=== PATIENT | male | born 1975 | race Hispanic/Latino ===

== ENCOUNTER 2024-03-26 15:33 | Emergency (ER) | payer SELFPAY ==
[2024-03-26 15:48] VITALS: BP 102/62; PULSE 110; RESP 16; TEMP 36.7; O2SAT 99
--- NOTE | 2024-03-26 15:51 | ED.EAR ---
HPI - Ear Problem General Chief complaint: Ear Stated complaint: left ear hurts Time Seen by Provider: 03/26/24 15:52 Source: patient Mode of arrival: ambulatory Limitations: no limitations History of Present Illness HPI Narrative: 48 yo M presents with c/o decreased hearing and itching to L ear. Pt has had off and on problems with L ear for 2 to 3 months. Has been seen by her PCP twice. Was given an oral abx and then an antibiotic drop. Afebrile. No pain to L ear at this time. all systems reviewed and negative except as noted above. Related Data Home Medications Medication Instructions Recorded Confirmed atorvastatin 10 mg tablet 10 mg PO QHS 03/26/24 03/26/24 hydrochlorothiazide 25 mg tablet 25 mg PO QAM 03/26/24 03/26/24 lisinopril 40 mg tablet 40 mg PO QAM 03/26/24 03/26/24 telmisartan 80 mg tablet 80 mg PO QAM 03/26/24 03/26/24 Allergies Allergy/AdvReac Type Severity Reaction Status Date / Time Penicillins Allergy Mild Unknown Verified 03/26/24 16:03 Review of Systems Review of Systems: CONSTITUTIONAL: Denies fever, chills, or sweats. EYES: Denies visual changes, redness, or discharge. ENT: Denies rhinorrhea, congestion, sore throat, or otalgia. Reports decreased hearing and itching to left ear canal. CARDIOVASCULAR: Denies chest pain, palpitations, or edema. RESPIRATORY: Denies cough or dyspnea. GASTROINTESTINAL: Denies abdominal pain, nausea, vomiting, or diarrhea. GENITOURINARY: Denies dysuria or hematuria. SKIN: Denies rash or itching. MUSCULOSKELETAL: Denies back pain, joint pain, or myalgia. NEUROLOGIC: Denies headache, numbness, or weakness. PSYCHIATRIC: Denies anxiety or depression. All other systems reviewed are negative, except as documented in HPI. PMFSH Comments At time of signature, agree with nursing past medical, surgical, social and family history. There is no relevant family history pertinent to the presenting complaint. Exam Narrative: GENERAL: This is a well-nourished, well-developed patient, in no apparent distress. HEAD: normocephalic, atraumatic. EYES: PERRL. Sclera clear/white. Vision is grossly intact. EARS: External ears normal, R ear amber normal. L ear canal is erythematous, slightly swollen, white drainage, TMs normal without perforation. Hearing grossly intact. NOSE: External nose normal NECK: Neck supple, non-tender without lymphadenopathy, masses or thyromegaly. CARDIOVASCULAR: Regular rate and rhythm without murmurs, gallops, or rubs. RESPIRATORY: Clear to auscultation. Breath sounds equal bilaterally. No wheezes, rales, or rhonchi. SKIN: warm, Dry, intact with no suspicious lesions or rash, good texture and turgor. NEURO: awake, alert, and oriented to person, place and time. There were no obvious focal neurologic abnormalities. EXTREMITIES: No joint tenderness, effusion, or edema noted. Course Course Level of Care: Express Care Visit Vital Signs Vital signs: Vital Signs Temperature 36.7 C 03/26/24 15:48 Pulse Rate 110 H 03/26/24 15:48 Respiratory Rate 16 03/26/24 15:48 Blood Pressure 102/62 03/26/24 15:48 Pulse Oximetry 99 03/26/24 15:48 Oxygen Delivery Room Air 03/26/24 15:48 Temperature 36.7 C 03/26/24 16:03 Pulse Rate 110 H 03/26/24 16:03 Respiratory Rate 16 03/26/24 16:03 Blood Pressure 102/62 03/26/24 16:03 Pulse Oximetry 99 03/26/24 16:03 Oxygen Delivery Room Air 03/26/24 16:03 Reviewed Medical Decision Making MDM Narrative Medical decision making narrative: Patient is aware of diagnosis, understands and agrees to treatment plan. Anticipatory guidance given. Patient agrees to follow-up as directed and is aware of reasons to seek care at the emergency department. Portions of this record may have been created with voice recognition software ear culture ordered. recommend follow up with research physicist if symptoms not improving Vital Signs Vital Signs: Vital Signs Temperature 36.7 C
[2024-03-26 16:03] VITALS: BP 102/62; PULSE 110; RESP 16; TEMP 36.7; O2SAT 99
== END 2024-03-26 16:10 | disposition home or self-care (01) ==
PROVIDERS: Emergency Provider Nurse Practitioner Family; PCP Registered Nurse
DX: B36.9 Superficial mycosis, unspecified (principal); H62.42 Otitis externa in other diseases classified elsewhere, left ear; E78.00 Pure hypercholesterolemia, unspecified; I10 Essential (primary) hypertension
CPT/HCPCS: 87070; 87205; 99213; G0463